=== PATIENT | female | born 1975 | race Caucasian/White ===

== ENCOUNTER 2019-08-06 05:20 | Day surgery (SDC) ==
[2019-07-31 10:49] LABS: BASO# 0.04 X1000 (0.0-0.2); BASO% 0.9 % (0.0-0.8); EOS# 0.18 X1000 (0.0-0.7); EOS% 3.9 % (0.0-10.0); HEMOGLOBIN 13.2 g/dL (12.0-16.0); LYMPH% 30.7 % (20.5-51.1); MCH 29.1 PG (27-31); MCHC 33.8 g/dL (33-37); MCV 85.9 FL (81-99); MONO% 6.6 % (1.7-9.3); MPV 9.3 FL (7.4-10.4); NEUT# 2.64 X1000 (1.4-6.5); NEUT% 57.9 % (42.2-75.2); PLT 275 X1000 (130-400); RBC 4.54 XMIL (4.2-5.4); RDW 12.9 % (11.5-14.5); WBC 4.56 X1000 (4.8-10.8)
--- NOTE | 2019-08-05 21:53 | HISTORY AND PHYSICAL ---
DATE OF SURGERY: 08/06/2019 HISTORY: The patient is a 44-year-old female who has been having worsening problems with pelvic organ prolapse. She has undergone a prior hysterectomy as well as anterior and posterior compartment defect repair and she is still struggling with prolapse. She has enlarged genital hiatus and apical descent. Her genital hiatus is certainly greater than 4 cm and she is also having discomfort. She is wishing to proceed with surgical intervention. We have been managing her with pessaries recently. PAST MEDICAL HISTORY: Negative for diabetes or hypertension. Positive for asthma. SURGICAL HISTORY: Positive for anterior colporrhaphy, posterior colporrhaphy, bilateral tubal ligation and vaginal hysterectomy. She is noted to be a para 3-0-0-3 with 1 forceps delivery. ALLERGIES: No known drug allergies. CURRENT MEDICATIONS: None. SOCIAL HISTORY: Negative for tobacco. She has occasional ETOH. Negative for drug usage. PHYSICAL EXAMINATION: BMI is 28. HEENT: Normocephalic, atraumatic. PERRLA. EOMI. No thyromegaly. CV: Regular rate and rhythm without murmur, gallop or rub. PULMONARY: Clear to auscultation and percussion. ABDOMEN: Soft. : Shows pop-Q stage II prolapse with most of it being anterior and apical defect. NEURO: Is afocal. EXTREMITIES: Without clubbing, cyanosis, or edema. ASSESSMENT AND PLAN: The patient is admitted at this time for abdominal sacrocolpopexy and posterior compartment defect repair with improvement of the genital hiatus. The risks and benefits were discussed at length. She understands, is wishing to proceed to surgical intervention. cc: Ad Augustin MD
[2019-08-06] MEDS ORDERED: KEFZOL 1 GM/D5W 2 GM/100 ML IVPB ONE (05:38)
[2019-08-06] MEDS ORDERED: PEPCID ONE (05:38)
[2019-08-06] MEDS ORDERED: LR 1,000 ML ONE ×3 (05:38→09:52)
[2019-08-06] MEDS ORDERED: REGLAN ONE (05:38)
[2019-08-06] MEDS ORDERED: DIPRIVAN 1% ONE (06:28)
[2019-08-06] MEDS ORDERED: VERSED ONE (06:28)
[2019-08-06] MEDS ORDERED: XYLOCAINE-MPF 2% ONE (06:30)
[2019-08-06] MEDS ORDERED: SENSORCAINE 0.25%/EPI 1:200,000 ONE (06:31)
[2019-08-06] MEDS ORDERED: D10W 1,000 ML ONE (06:33)
[2019-08-06] MEDS ORDERED: FENTANYL ONE (06:36)
--- NOTE | 2019-08-06 06:47 | H&P REVIEW ---
H&P Update H&P Review: H&P was reviewed and patient was examined, No change has occurred in the patient's condition
[2019-08-06 07:51] LABS: URINE SOURCE CATH
[2019-08-06 07:59] LABS: BILIRUBIN URINE NEGATIVE (NEGATIVE); BLOOD URINE NEGATIVE (NEGATIVE); COLOR YELLOW; GLUCOSE URINE NEGATIVE (NEGATIVE); KETONE URINE NEGATIVE (NEGATIVE); LEUKOCYTES URINE NEGATIVE (NEGATIVE); NITRITE URINE NEGATIVE (NEGATIVE); PROTEIN URINE NEGATIVE (NEGATIVE); SP GRAVITY URINE 1.017; TURBIDITY URINE CLEAR (CLEAR); UROBILINOGEN URINE NORMAL (NORMAL)
[2019-08-06 08:00] LABS: UR EPITHELIAL CELLS <10 /HPF (<10); URINE BACTERIA NEGATIVE /HPF; URINE RBC <10 /HPF (<10); URINE WBC <10 /HPF (<10)
[2019-08-06] MEDS ORDERED: ROBINUL ONE (09:11)
[2019-08-06] MEDS ORDERED: METROGEL-VAGINAL 0.75% GEL ONE (09:25)
[2019-08-06] MEDS ORDERED: DEMEROL ONE (09:44)
[2019-08-06] MEDS: DILAUDID ONE ×4 (10:10→10:20)
[2019-08-06] MEDS ORDERED: PHENERGAN ONE (10:22)
[2019-08-06] MEDS ORDERED: ZOFRAN ODT PO PRN (10:44)
[2019-08-06] MEDS: LR 1,000 ML IV SCH ×2 (11:00→18:35)
[2019-08-06] MEDS: COLACE PO SCH ×2 (12:08→21:20)
[2019-08-06] MEDS: PERIDEX MT SCH ×2 (12:08→21:20)
[2019-08-06] MEDS: ZYRTEC PO SCH (12:08)
[2019-08-06] MEDS: TORADOL IV SCH ×2 (12:59→18:35)
--- NOTE | 2019-08-06 13:57 | OPERATIVE NOTE ---
PROCEDURE DATE: 08/06/2019 PREOPERATIVE DIAGNOSIS: Pelvic organ prolapse. POSTOPERATIVE DIAGNOSIS: Prolapse, large right ovarian endometrioma, left hydrosalpinx, dense adhesive disease. PROCEDURE: 1. Laparoscopic salpingo-oophorectomy on the right. 2. Moderate amount of lysis of adhesions. 3. Sacral colpopexy. 4. Anterior and posterior compartment defect repair. SURGEON: Ad Augustin MD. ANESTHESIA: General. ESTIMATED BLOOD LOSS: 50 mL. HISTORY: The patient is a 44-year-old female with a history of prior surgery who has been having increasing problems with pelvic organ prolapse and discomfort and pressure. She was evaluated in our office and we have been attempting conservative management, but she wished to proceed with surgical intervention. OPERATIVE FINDINGS: The patient was found to have moderate amount of adhesions involving the entire pelvis because of a large right ovarian endometrioma that was multicystic, adhered to the sidewall just above the ureter. She was also found to have second-degree prolapse; it was primarily apical. She was found to have a redundancy of vaginal tissue with a vaginal defect related to prior surgery, and she was found to have distal posterior compartment defect. Intraperitoneal, she was found to have dense adhesions of bowel and then total involvement of the posterior cul-de-sac from the endometrioma on the right. She was also found to have the left tube having a large hydrosalpinx. OPERATIVE PROCEDURE: Patient taken to the operating room, placed in supine position. After adequate general anesthesia obtained, she is placed in the [facility]. Her abdomen and vagina were prepped and draped in the usual fashion. A repeat umbilical incision was made, and after infiltration of 0.25% Marcaine with epinephrine, an incision was made and a 12 mm port and sheath were introduced through this incision into the abdominal cavity. Pelvic contents were visualized. Therefore, insufflation with CO2 to an intra-abdominal pressure of 14 was performed. Immediately, we saw the very large endometrioma coming from the right sidewall. We placed our left-sided ports under direct visualization without any difficulty. The right- sided ports were placed as well with the assistance port in the right upper quadrant. All ports were placed under direct visualization and after infiltration of 0.25% Marcaine with epinephrine. The patient was then placed in the deep Trendelenburg position. Bauer catheter was placed and the EEA sizers were placed within the vagina and the rectum, and the robot was docked. Hot scissors in the right hand, bipolar PK in the left hand, and a Cardiere grasper in the third arm. Before we could do anything, we actually had to clear out the pelvis and so we actually started with the ovary. As soon as we touched the ovary, we actually had rupture of a large amount of chocolate coming out of the cyst consistent with the endometrioma. We grasped the cyst with a Cardiere grasper and used this and primarily sharp dissection to dissect the ovary away. We were not able to get the ovary totally removed away from the sidewall. We had to perform an extensive amount of lysis of adhesions to have the bowel tissue removed away from the ovarian cyst as well. We ended up coming across the ovarian cyst, leaving approximately 1 cm of tissue in a small area right above the ureter to avoid injury to the ureter. Upon doing this, we had a large amount of old bloody material consistent with chocolate cyst extruded into the pelvis. We had to perform a large amount of irrigation; approximately 2 L was irrigated. We placed the cyst in the appendiceal bed at this time, and continued with lysis of adhesions of the sigmoid colon and descending colon to have mobility of this area. We were then able to visualize the pelvis, and at this time we discovered the hydrosalpinx involving the left side. So, we elevated the fallopian tube away from the ovary and performed a salpingectomy on the left-hand side. This also was placed in the appendiceal bed. At this time, we then turned our attention towards actually performing a sacrocolpopexy. We used the EEA sizer to elevate the vaginal apex, and we then began our dissection. Because of the nature of the tissue in the endometriosis, it was not flexible at all, it was almost more scarred down. We were able to dissect approximately 6 cm in the anterior compartment without any difficulty, staying in the avascular space. The posterior compartment, however, was moderately adhered to the endometrioma. It was very difficult to actually get this space open. We dissected approximately 4 cm posteriorly when typically we were dissecting 8 to 10 cm in both compartments. Because of the small amount of dissection that was open to us due to her endometriosis, we did not proceed any further. We then went to the promontory and exposed this quite easily by deviating the descending colon laterally. We elevated the peritoneum and opened this area sharply. We had minimal issues with vascularity in this area. We then created a tunnel, however as we went down the right side wall and got into our prior dissection, we actually had to skip approximately 4 to 6 cm of dissection for tunnel because of this, so we went beyond our prior dissection and then distally and connected up with our posterior dissection for the rectovaginal septum. Upon doing this, we trimmed our mesh. We had approximately 5 cm anteriorly and 4 cm posteriorly, which is a marked reduction in the typical graft placement. We started in the anterior compartment, securing this anterior mesh with interrupted Salisbury-Elmer sutures. All sutures were thrown with an initial surgeon's throw and 4 half throws. We placed approximately 6 to 8 sutures anteriorly and apically. In the posterior compartment, we placed approximately 4 to 5 sutures securing this arm. We brought the third arm up to the sacral promontory and, with a fresh Salisbury-Elmer suture, placed 2 sutures through the third arm into the anterior and longitudinal ligament. We then turned our attention towards reperitonealization, and this was difficult because of our prior dissection along the right side. We were able to get 90% of the mesh covered. However, just because of the proximity to the ureter and the prior tissue, this was not a complete covering of the mesh. At this time again copious amounts of irrigation was performed. We then removed as much of the tissue that we could. We undocked the robot at this point. At this time, we then used a straight scope and made our incision for the assistance port larger. I reached into the peritoneal cavity with a large Shaylee clamp. I was able to grasp the large ovarian tissue, and we were able to remove it by extending our fascial incision as well. We removed all the other small pieces that had been removed as well. This has all been sent to pathology. We used a Aron-Jesse closure system to close both the assistance port and our robotic camera port with 0 Vicryl ligature. Abdomen was deflated of all CO2 as all ports were removed, and the Nursing Services closed all skin incisions with 4.0 Vicryl ligature in a subcuticular fashion and surgical glue. Vaginally we had excellent support apically. We removed the Bauer catheter and there was no evidence of any injury within the bladder and both ureters were effluxing urine. The Bauer catheter was replaced. We then turned our attention towards the anterior compartment. She had a prior operative procedure in this area with a large defect of vaginal mucosa and a shelf anteriorly that was uncomfortable to her with intercourse. We dissected into this area after hydrodissection with 0.25% Marcaine with epinephrine. Our incision in this area was a sagittal incision instead of a transverse incision, and doing this we then freed up all of this area and continued with our dissection anteriorly. We did not cut any of the vaginal tissue because of her defect that was there. We did not have any additional vaginal tissue removed, and we then re-closed this area with a running 2.0 Vicryl ligature. In the posterior compartment, we performed a traditional posterior compartment defect repair, doing an initial hydrodissection with the same local anesthetic and then making a sagittal incision and dissecting laterally and dissecting up approximately 8 cm. We then used interrupted 0 Vicryl ligature to plicate the levators across our midline. We removed approximately 2 cm of vaginal mucosa from both sides, and then closed the posterior incision with running 2.0 Vicryl ligature. Vaginal pack was placed. Sponge count, instrument count, needle counts were correct x3. Packs and drains were Bauer and vaginal pack 'd. The patient was awakened, taken to recovery room with vital signs stable. cc: Ad Augustin MD MTDOdette
[2019-08-06] MEDS: NORCO-5 PO PRN ×2 (15:23→19:43)
--- NOTE | 2019-08-06 18:37 | PROGRESS NOTE ---
DATE: 08/06/2019 TIME SEEN: 5:40 p.m. SUBJECTIVE: The patient is alert and oriented x2. Mild to moderate pain. OBJECTIVE: Afebrile. Vital signs stable. Urine output is clear and adequate. ASSESSMENT AND PLAN: Routine postoperative care. We will plan on removal of the vaginal pack and Bauer in the morning. We will plan on discharge in the morning if she has a good evening. cc: Ad Augustin MD
[2019-08-07] MEDS: NORCO-5 PO PRN ×3 (00:37→10:23)
[2019-08-07] MEDS: TORADOL IV SCH ×2 (01:57→06:07)
[2019-08-07] MEDS: LR 1,000 ML IV SCH ×2 (02:03→10:22)
[2019-08-07] MEDS: COLACE PO SCH (10:03)
[2019-08-07] MEDS: PERIDEX MT SCH (10:03)
[2019-08-07] MEDS: ZYRTEC PO SCH (10:03)
[2019-08-07 11:26] VITALS: BP 132/80
--- NOTE | 2019-08-07 14:54 | DISCHARGE SUMMARY ---
ADMISSION DATE: 08/06/2019 DISCHARGE DATE: 08/07/2019 PRINCIPAL DIAGNOSIS: Pelvic organ prolapse. OTHER DIAGNOSES: Severe stage IV endometriosis. PROCEDURE: DaVinci right salpingo-oophorectomy with removal of large endometrioma, left salpingectomy, abdominal sacrocolpopexy, anterior and posterior compartment defect repair. HISTORY: The patient is a 44-year-old female who was having worsening symptomatic pelvic organ prolapse and pressure. She had a prior urethral procedure for incontinence by Dr. Lares and had been having issues with this as well because of her incontinence and inability to void. She was admitted for surgical intervention. HOSPITAL COURSE: The patient underwent the above-stated procedure. Blood loss at the time was approximately 20 mL. Her postoperative course has been uncomplicated. She is being discharged home with instructions for followup in 2 to 3 weeks. DISCHARGE MEDICATIONS: [place], Colace, and Toradol. She was instructed on regular diet and decreased activity. cc: Ad Augustin MD
== END 2019-08-07 13:51 | disposition home or self-care (01) ==
LOC: 4N 05:20 → OR 05:20
PROVIDERS: ATTEND Obstetrics & Gynecology